=== PATIENT | male | born 1935 | race Caucasian/White ===

== ENCOUNTER 2024-06-15 02:01 | Inpatient (IN) | payer MEDICARE ==
[~2024-06-15] VITALS: Ht 167.6 cm; Wt 49.9 kg
[2024-06-15 02:58] LABS: BASOPHILS # (AUTO) 0.1 K/uL (0.0-0.2); BASOPHILS % (AUTO) 0.9 % (0.0-2.0); EOSINOPHILS # (AUTO) 0.3 K/uL (0.0-0.7); HEMATOCRIT 36 % (39-51); LYMPHOCYTES # (AUTO) 2.5 K/uL (0.8-4.8); LYMPHOCYTES % (AUTO) 36.6 % (20.0-44.0); MEAN CORPUSCULAR HEMOGLOBIN 27 PG (26.0-33.0); MEAN CORPUSCULAR HGB CONC 31 g/dl (31.0-36.0); MEAN CORPUSCULAR VOLUME 87 fL (80-96); MONOCYTES # (AUTO) 0.9 K/uL (0.1-1.30); MONOCYTES % (AUTO) 12.8 % (2.0-12.0); NEUTROPHILS % (AUTO) 44.7 % (43.0-81.0); PLATELET COUNT (AUTO) 149 K/uL (150-450); RED CELL DISTRIBUTION WIDTH 19.5 % (11.5-15.0); WHITE BLOOD COUNT (AUTO) 6.8 K/uL (4.3-11.0)
[2024-06-15 03:05] LABS: CALCIUM, SERUM 9.3 mg/dL (8.5-10.1); CARBON DIOXIDE 28 mmol/L (21-32); CHLORIDE 103 mmol/L (98-107); CREATININE 5.7 mg/dL (0.6-1.3); GLUCOSE 77 mg/dL (74-106); SODIUM SERUM 140 mmol/L (136-145); UREA NITROGEN, BLOOD 66 mg/dL (7-18)
[2024-06-15 03:11] LABS: ALANINE AMINOTRANSFERASE 12 U/L (12-78); ALBUMIN 3.3 g/dL (3.4-5.0); ALKALINE PHOSPHATASE 55 U/L (46-116); ASPARTATE AMINOTRANSFERASE 11 U/L (15-37); BILIRUBIN,TOTAL 0.3 mg/dL (0.2-1.0); TOTAL PROTEIN, SERUM 8.2 g/dL (6.4-8.2)
[2024-06-15] MEDS: IV NS 0.9% 1,000 ML IV ONE (03:23)
[2024-06-15] MEDS ORDERED: Z GUARD REMEDY 4 OZ OINT TP PRN (04:00)
[2024-06-15] MEDS ORDERED: ONDANSETRON HCL/PF 4 MG/2 ML VIAL IVP PRN (04:00)
[2024-06-15] MEDS ORDERED: MAG HYDROX/AL HYDROX/SIMETH 30 ML UDC PO PRN (04:00)
[2024-06-15 05:07] VITALS: BP 172/80; TEMP 97.7; O2SAT 97
[2024-06-15] MEDS: hydrALAZINE HCL IV 20 MG VIAL IV PRN (06:13)
[2024-06-15 08:00] VITALS: BP_SYST 150; BP_SYST 158; BP_DIAS 74; BP_DIAS 77; TEMP 97.5; TEMP 97.6; O2SAT 99
[2024-06-15] MEDS ORDERED: DEXTROSE 50%-WATER 50 ML DISP.SYRIN IV PRN (08:00)
[2024-06-15] MEDS: BLOOD SUGAR DIAGNOSTIC 1 EACH STRIP IN SCH (09:06)
[2024-06-15] MEDS: PANTOPRAZOLE 40 MG VIAL IV SCH (09:06)
[2024-06-15] MEDS: INSULIN REGULAR, HUMAN 100 UNIT/ML 3 ML VIAL SQ PRN (12:29)
[2024-06-15] MEDS: ACETAMINOPHEN 325 MG TABLET PO PRN (14:15)
[2024-06-15 20:00] VITALS: BP 150/77; TEMP 97.5; O2SAT 99
[2024-06-16 07:00] VITALS: BP 178/78; TEMP 97.5; O2SAT 98
[2024-06-16 07:17] LABS: BASOPHILS # (AUTO) 0.1 K/uL (0.0-0.2); BASOPHILS % (AUTO) 1.1 % (0.0-2.0); EOSINOPHILS # (AUTO) 0.3 K/uL (0.0-0.7); EOSINOPHILS % (AUTO) 4.1 % (0.0-6.0); HEMATOCRIT 35 % (39-51); HEMOGLOBIN 10.7 g/dL (13.5-17.5); LYMPHOCYTES # (AUTO) 2.5 K/uL (0.8-4.8); LYMPHOCYTES % (AUTO) 36.2 % (20.0-44.0); MEAN CORPUSCULAR HEMOGLOBIN 27 PG (26.0-33.0); MEAN CORPUSCULAR HGB CONC 30 g/dl (31.0-36.0); MEAN CORPUSCULAR VOLUME 89 fL (80-96); MONOCYTES # (AUTO) 0.7 K/uL (0.1-1.30); MONOCYTES % (AUTO) 9.9 % (2.0-12.0); NEUTROPHILS # (AUTO) 3.3 K/uL (1.8-8.9); NEUTROPHILS % (AUTO) 48.7 % (43.0-81.0); PLATELET COUNT (AUTO) 143 K/uL (150-450); RED BLOOD CELL COUNT(AUTO) 3.94 MIL/uL (4.5-6.0); RED CELL DISTRIBUTION WIDTH 19.9 % (11.5-15.0); WHITE BLOOD COUNT (AUTO) 6.8 K/uL (4.3-11.0)
[2024-06-16 07:40] LABS: CALCIUM, SERUM 8.7 mg/dL (8.5-10.1); CARBON DIOXIDE 27 mmol/L (21-32); CHLORIDE 100 mmol/L (98-107); CREATININE 3.7 mg/dL (0.6-1.3); GLUCOSE 70 mg/dL (74-106); MAGNESIUM 2.5 mg/dL (1.8-2.4); PHOSPHORUS 2.5 mg/dL (2.5-4.9); SODIUM SERUM 134 mmol/L (136-145); UREA NITROGEN, BLOOD 34 mg/dL (7-18)
[2024-06-16] MEDS: PANTOPRAZOLE 40 MG TABLET.DR PO SCH (08:34)
[2024-06-16] MEDS: AMLODIPINE BESYLATE 5 MG TABLET PO SCH (08:34)
[2024-06-16 09:00] VITALS: BP 152/71
[2024-06-16 09:12] LABS: HEPATITIS B CORE AB, IgM Negative (Negative); HEPATITIS B CORE AB, TOTAL Positive (Negative); HEPATITIS B SURFACE AB Reactive (.)
[2024-06-16] MEDS ORDERED: SENN-261 PO (12:12)
[2024-06-16] MEDS ORDERED: ONDA-97 PO (12:12)
[2024-06-16] MEDS ORDERED: FAMO20TA8 PO (12:12)
[2024-06-16] MEDS ORDERED: NUT.237L67 PO (12:12)
[2024-06-16] MEDS ORDERED: DICL100G34 TP (12:12)
[2024-06-16] MEDS ORDERED: MIRT7.5T10 PO (12:12)
[2024-06-16] MEDS ORDERED: FERR325T23 PO (12:12)
[2024-06-16] MEDS ORDERED: CHOL100043 PO (12:12)
[2024-06-16] MEDS ORDERED: BISM262O28 PO (12:12)
[2024-06-16] MEDS ORDERED: ACET325T53 PO (12:12)
[2024-06-16] MEDS ORDERED: MIDO5TAB4 PO (12:12)
[2024-06-16] MEDS ORDERED: ATOR10TA PO (12:12)
[2024-06-16] MEDS ORDERED: FINA5TAB3 PO (12:12)
[2024-06-16] MEDS ORDERED: SEVE800T7 PO (12:12)
[2024-06-16] MEDS ORDERED: LIDO1ADH82 TP (12:12)
[2024-06-16] MEDS ORDERED: GUAI100L26 PO (12:12)
[2024-06-16] MEDS ORDERED: TAMS-12 PO (12:12)
[2024-06-16] MEDS ORDERED: MULT-213 PO (12:12)
[2024-06-16] MEDS ORDERED: CARV6.252 PO (12:12)
[2024-06-16] MEDS ORDERED: HYDR-4076 PO (12:12)
[2024-06-16 16:00] VITALS: BP 149/70; TEMP 97.9; O2SAT 95
[2024-06-16] MEDS ORDERED: NEPRO VAN 237 ML CAN PO PRN (19:00)
[2024-06-16 20:00] VITALS: BP 134/83; TEMP 98.1; O2SAT 95
[2024-06-16] MEDS: MAGNESIUM HYDROXIDE 30 ML UDC PO PRN (20:15)
[2024-06-17 06:29] LABS: BASOPHILS # (AUTO) 0.1 K/uL (0.0-0.2); BASOPHILS % (AUTO) 0.7 % (0.0-2.0); EOSINOPHILS # (AUTO) 0.4 K/uL (0.0-0.7); EOSINOPHILS % (AUTO) 5.3 % (0.0-6.0); HEMATOCRIT 34 % (39-51); HEMOGLOBIN 10.6 g/dL (13.5-17.5); LYMPHOCYTES % (AUTO) 34.9 % (20.0-44.0); MEAN CORPUSCULAR HEMOGLOBIN 27 PG (26.0-33.0); MEAN CORPUSCULAR HGB CONC 31 g/dl (31.0-36.0); MEAN CORPUSCULAR VOLUME 86 fL (80-96); MONOCYTES % (AUTO) 11.2 % (2.0-12.0); NEUTROPHILS # (AUTO) 4.1 K/uL (1.8-8.9); NEUTROPHILS % (AUTO) 47.9 % (43.0-81.0); PLATELET COUNT (AUTO) 147 K/uL (150-450); RED BLOOD CELL COUNT(AUTO) 3.96 MIL/uL (4.5-6.0); WHITE BLOOD COUNT (AUTO) 8.5 K/uL (4.3-11.0)
[2024-06-17 06:57] LABS: CALCIUM, SERUM 9.1 mg/dL (8.5-10.1); CARBON DIOXIDE 27 mmol/L (21-32); CHLORIDE 101 mmol/L (98-107); CREATININE 5.1 mg/dL (0.6-1.3); GLUCOSE 97 mg/dL (74-106); MAGNESIUM 2.4 mg/dL (1.8-2.4); PHOSPHORUS 3.9 mg/dL (2.5-4.9); POTASSIUM 4.9 mmol/L (3.5-5.1); SODIUM SERUM 138 mmol/L (136-145); UREA NITROGEN, BLOOD 59 mg/dL (7-18)
[2024-06-17 07:00] VITALS: BP 171/81; TEMP 97.9; O2SAT 99
[2024-06-17 09:30] VITALS: BP 123/70
[2024-06-17 12:00] VITALS: BP 127/76; TEMP 98.7; O2SAT 97
[2024-06-17 16:00] VITALS: TEMP 98.6; O2SAT 97
[2024-06-17 20:00] VITALS: BP 142/76; TEMP 97.7; O2SAT 98
[2024-06-17 20:37] VITALS: BP 142/76; TEMP 97.7; O2SAT 98
[2024-06-18 07:30] VITALS: BP 141/74; TEMP 97.9; O2SAT 96
[2024-06-18 16:00] VITALS: BP 133/74; TEMP 97.5; O2SAT 97
[2024-06-18] MEDS ORDERED: SENNOSIDES 8.6 MG TABLET PO PRN (18:00)
[2024-06-18] MEDS: SEVELAMER CARBONATE 800 MG TABLET PO SCH (18:35)
[2024-06-18 20:00] VITALS: BP 124/65; TEMP 98.8; O2SAT 97
[2024-06-18 20:44] VITALS: BP 124/65; TEMP 98.8; O2SAT 97
[2024-06-18] MEDS: TAMSULOSIN 0.4 MG CAP.SR.24H PO SCH (21:32)
[2024-06-18] MEDS: ATORVASTATIN 10 MG TABLET PO SCH (21:32)
[2024-06-18] MEDS: hydrALAZINE HCL 25 MG TABLET PO SCH (21:33)
[2024-06-19 06:46] LABS: BASOPHILS % (AUTO) 0.5 % (0.0-2.0); EOSINOPHILS # (AUTO) 0.4 K/uL (0.0-0.7); EOSINOPHILS % (AUTO) 4.5 % (0.0-6.0); HEMATOCRIT 31 % (39-51); HEMOGLOBIN 9.7 g/dL (13.5-17.5); LYMPHOCYTES # (AUTO) 2.9 K/uL (0.8-4.8); LYMPHOCYTES % (AUTO) 34.8 % (20.0-44.0); MEAN CORPUSCULAR HEMOGLOBIN 27 PG (26.0-33.0); MEAN CORPUSCULAR HGB CONC 32 g/dl (31.0-36.0); MEAN CORPUSCULAR VOLUME 85 fL (80-96); MONOCYTES # (AUTO) 0.8 K/uL (0.1-1.30); MONOCYTES % (AUTO) 9.2 % (2.0-12.0); NEUTROPHILS # (AUTO) 4.2 K/uL (1.8-8.9); PLATELET COUNT (AUTO) 134 K/uL (150-450); RED BLOOD CELL COUNT(AUTO) 3.59 MIL/uL (4.5-6.0); RED CELL DISTRIBUTION WIDTH 19.5 % (11.5-15.0); WHITE BLOOD COUNT (AUTO) 8.3 K/uL (4.3-11.0)
[2024-06-19 06:52] LABS: INR 1.06 (0.91-1.10); PROTHROMBIN TIME 11.2 SECS (9.2-11.1)
[2024-06-19 07:05] LABS: ALANINE AMINOTRANSFERASE 9 U/L (12-78); ALBUMIN 2.9 g/dL (3.4-5.0); ALKALINE PHOSPHATASE 54 U/L (46-116); ASPARTATE AMINOTRANSFERASE 14 U/L (15-37); BILIRUBIN,TOTAL 0.4 mg/dL (0.2-1.0); CALCIUM, SERUM 8.7 mg/dL (8.5-10.1); CARBON DIOXIDE 32 mmol/L (21-32); CHLORIDE 96 mmol/L (98-107); CREATININE 5.8 mg/dL (0.6-1.3); GLUCOSE 80 mg/dL (74-106); MAGNESIUM 2.8 mg/dL (1.8-2.4); PHOSPHORUS 4.7 mg/dL (2.5-4.9); SODIUM SERUM 135 mmol/L (136-145); TOTAL PROTEIN, SERUM 7.3 g/dL (6.4-8.2); UREA NITROGEN, BLOOD 60 mg/dL (7-18)
[2024-06-19 07:30] VITALS: BP 123/65; TEMP 97.9; O2SAT 98
[2024-06-19] MEDS: NEPRO VAN 237 ML CAN PO SCH (08:14)
[2024-06-19] MEDS: CARVEDILOL 6.25 MG TABLET PO SCH (08:14)
[2024-06-19] MEDS: FERROUS SULFATE (325 MG) 325 MG/TAB TABLET PO SCH (08:14)
[2024-06-19] MEDS: FAMOTIDINE (20 MG) 20 MG TABLET PO SCH (08:15)
[2024-06-19] MEDS: FINASTERIDE (5 MG) 5 MG TABLET PO SCH (08:15)
[2024-06-19] MEDS ORDERED: LIDOCAINE HCL/MPF 1% 30 ML VIAL IJ ONE (14:43)
[2024-06-19] MEDS ORDERED: CELLULOSE,OXIDIZED 1 EA PACK MC ONE (14:43)
[2024-06-19] MEDS ORDERED: HEMOSTATIC MATRIX 8 ML 1 EACH PAD MC ONE (14:43)
[2024-06-19] MEDS ORDERED: CELLULOSE,OXIDIZED 1 EACH EACH MC ONE (14:44)
[2024-06-19] MEDS ORDERED: CELLULOSE,OXIDIZED 1 PKT EACH MC ONE (14:44)
[2024-06-19 16:00] VITALS: BP 126/63; TEMP 97.5; O2SAT 98
[2024-06-19] MEDS ORDERED: ROPIVACAINE HCL 0.5% 5 MG/ML 30ML VIAL ONE (16:51)
[2024-06-19 20:00] VITALS: BP_SYST 114; BP_SYST 119; BP_SYST 130; BP_DIAS 52; BP_DIAS 57; BP_DIAS 62; TEMP 97.8; TEMP 98.1; TEMP 98.3; O2SAT 97; O2SAT 98
[2024-06-20 08:00] VITALS: BP 112/67; TEMP 98.4; O2SAT 97
[2024-06-20 16:00] VITALS: BP 134/69; TEMP 98.1; O2SAT 100
[2024-06-20 20:00] VITALS: BP 140/57; TEMP 98.4; O2SAT 99
[2024-06-20 21:30] VITALS: BP 137/68; TEMP 98.4; O2SAT 98
== END 2024-06-20 21:45 | DRG 628 ==
LOC: ER 02:09 → MED 03:40
PROVIDERS: ADMIT Internal Medicine; ATTEND Internal Medicine
PROC: 5A1D70Z Performance of Urinary Filtration, Intermittent, Less than 6 Hours Per Day (ICD-10-PCS; 2024-06-15)
PROC: 03180ZD Bypass Left Brachial Artery to Upper Arm Vein, Open Approach (ICD-10-PCS; principal; 2024-06-19)
DX: R62.7 Adult failure to thrive (principal); N18.6 End stage renal disease; R64 Cachexia; I12.0 Hypertensive chronic kidney disease with stage 5 chronic kidney disease or end stage renal disease; Z68.1 Body mass index [BMI] 19.9 or less, adult; E11.22 Type 2 diabetes mellitus with diabetic chronic kidney disease; Z99.2 Dependence on renal dialysis; D63.1 Anemia in chronic kidney disease; M89.8X9 Other specified disorders of bone, unspecified site; Z88.2 Allergy status to sulfonamides; Z88.3 Allergy status to other anti-infective agents; D64.9 Anemia, unspecified; N25.0 Renal osteodystrophy
CPT/HCPCS: 36415; 71045-TC; 80048-TC; 80053-TC; 82962-TC; 83735-TC; 84100-TC; 85025-TC; 85610-TC; 85730-TC; 86704; 86705; 86706; 86803; 86850-TC; 87081-TC; 87340; 90935-TC; 97110-TC; 97116-TC; 97530-TC; A6209; G0378; J0360; J0690; J1644; J1815; J2470; J2704; J2795; J3490; J7030; J7060

== ENCOUNTER 2024-06-30 22:50 | Emergency (ER) | payer MEDICARE, OTHER ==
[~2024-06-30] VITALS: Ht 167.6 cm; Wt 49.9 kg
[~2024-06-30 22:50] MED LIST: ACET325T53 PO; ATOR10TA PO; BISM262O28 PO; CARV6.252 PO; CHOL100043 PO; DICL100G34 TP; FAMO20TA8 PO; FERR325T23 PO; FINA5TAB3 PO; GUAI100L26 PO; HYDR-4076 PO; LIDO1ADH82 TP; MIDO5TAB4 PO; MIRT7.5T10 PO; MULT-213 PO; NUT.237L67 PO; ONDA-97 PO; SENN-261 PO; SEVE800T7 PO; TAMS-12 PO
[2024-06-30 23:48] LABS: BASOPHILS % (AUTO) 0.5 % (0.0-2.0); EOSINOPHILS # (AUTO) 0.3 K/uL (0.0-0.7); EOSINOPHILS % (AUTO) 3.9 % (0.0-6.0); HEMATOCRIT 31 % (39-51); HEMOGLOBIN 9.9 g/dL (13.5-17.5); LYMPHOCYTES # (AUTO) 2.8 K/uL (0.8-4.8); LYMPHOCYTES % (AUTO) 32.5 % (20.0-44.0); MEAN CORPUSCULAR HEMOGLOBIN 28 PG (26.0-33.0); MEAN CORPUSCULAR HGB CONC 32 g/dl (31.0-36.0); MEAN CORPUSCULAR VOLUME 87 fL (80-96); MONOCYTES # (AUTO) 0.7 K/uL (0.1-1.30); MONOCYTES % (AUTO) 8.4 % (2.0-12.0); NEUTROPHILS # (AUTO) 4.8 K/uL (1.8-8.9); NEUTROPHILS % (AUTO) 54.7 % (43.0-81.0); PLATELET COUNT (AUTO) 165 K/uL (150-450); RED BLOOD CELL COUNT(AUTO) 3.58 MIL/uL (4.5-6.0); RED CELL DISTRIBUTION WIDTH 18.7 % (11.5-15.0); WHITE BLOOD COUNT (AUTO) 8.7 K/uL (4.3-11.0)
[2024-07-01 00:07] LABS: ALANINE AMINOTRANSFERASE 11 U/L (12-78); ALBUMIN 3.2 g/dL (3.4-5.0); ALKALINE PHOSPHATASE 62 U/L (46-116); ASPARTATE AMINOTRANSFERASE 22 U/L (15-37); BILIRUBIN,DIRECT 0.1 mg/dL (0.0-0.2); BILIRUBIN,TOTAL 0.3 mg/dL (0.2-1.0); CALCIUM, SERUM 8.4 mg/dL (8.5-10.1); CARBON DIOXIDE 34 mmol/L (21-32); CHLORIDE 100 mmol/L (98-107); CREATININE 4.3 mg/dL (0.6-1.3); GLUCOSE 101 mg/dL (74-106); LIPASE 116 U/L (16-77); POTASSIUM 3.9 mmol/L (3.5-5.1); SODIUM SERUM 137 mmol/L (136-145); TOTAL PROTEIN, SERUM 8.1 g/dL (6.4-8.2); UREA NITROGEN, BLOOD 52 mg/dL (7-18)
[2024-07-01] MEDS ORDERED: MAGNESIUM HYDROXIDE 30 ML UDC ONE (00:20)
[2024-07-01] MEDS ORDERED: LACTULOSE 10 G/15 ML UDC (PYXIS) ONE (00:20)
[2024-07-01] MEDS: LACTULOSE 10 G/15 ML UDC (PYXIS) PO ONE (00:33)
[2024-07-01] MEDS: MAGNESIUM HYDROXIDE 30 ML UDC PO ONE (00:33)
[2024-07-01] MEDS ORDERED: SENNOSIDES 8.6 MG TABLET ONE (00:53)
[2024-07-01] MEDS: SENNOSIDES/DOCUSATE SODIUM 1 TAB TABLET PO SCH (00:57)
[2024-07-01 02:48] LABS: APPEARANCE,URINE CLEAR (CLEAR); BILIRUBIN,URINE NEGATIVE (NEGATIVE); BLOOD, URINE 1+ Ery/uL (NEGATIVE); COLOR,URINE YELLOW (YELLOW); KETONES,URINE NEGATIVE (NEGATIVE); LEUKOCYTE ESTERASE ,URINE 2+ (NEGATIVE); NITRITE, URINE NEGATIVE (NEGATIVE); PROTEIN,URINE 3+ mg/dl (NEGATIVE); UGLUCOSE NEGATIVE (NEGATIVE); UROBILINOGEN,URINE 0.2 EU/dL (0.2)
[2024-07-01 03:17] LABS: ADD URINE CULTURE YES; BACTERIA,URINE Few /HPF (None Seen); MUCUS,URINE Many /LPF (None Seen); SQUAMOUS EPITHELIAL CELL,UR None Seen /HPF (None Seen); WBC,URINE 21-50 /HPF (0-3)
[2024-07-01] MEDS ORDERED: NA PHOS,M-B/NA PHOS,DI-BA 1 EA ENEMA RC ONE (04:26)
[2024-07-01] MEDS: NA PHOS,M-B/NA PHOS,DI-BA 1 EA ENEMA RC ONE (04:49)
[2024-07-01] MEDS ORDERED: DOCU-141 PO (05:51)
[2024-07-01] MEDS ORDERED: SENN8.6T19 PO (05:51)
[2024-07-01] MEDS ORDERED: CEPH500C2 PO (05:51)
[2024-07-01 07:48] VITALS: BP 179/77; TEMP 98; O2SAT 99
== END 2024-07-01 08:19 | disposition home health service (06) ==
LOC: ER 22:54
DX: K56.41 Fecal impaction (principal); I12.0 Hypertensive chronic kidney disease with stage 5 chronic kidney disease or end stage renal disease; E11.22 Type 2 diabetes mellitus with diabetic chronic kidney disease; I31.39 Other pericardial effusion (noninflammatory); Z88.2 Allergy status to sulfonamides; Z88.1 Allergy status to other antibiotic agents; Z99.2 Dependence on renal dialysis
CPT/HCPCS: 36415; 80048-TC; 80076-TC; 81001; 83690-TC; 85025-TC; 87086-TC

== ENCOUNTER 2024-10-06 16:53 | Emergency (ER) | payer MEDICARE, OTHER ==
[~2024-10-06] VITALS: Ht 167.6 cm; Wt 72.6 kg
[~2024-10-06 16:53] MED LIST changes: +CEPH500C2 PO; +DOCU-141 PO
[2024-10-06 20:08] VITALS: TEMP 97.5
[2024-10-06 20:46] LABS: BASOPHILS # (AUTO) 0.1 K/uL (0.0-0.2); BASOPHILS % (AUTO) 0.8 % (0.0-2.0); EOSINOPHILS # (AUTO) 0.3 K/uL (0.0-0.7); EOSINOPHILS % (AUTO) 3.2 % (0.0-6.0); HEMATOCRIT 36 % (39-51); HEMOGLOBIN 11.8 g/dL (13.5-17.5); LYMPHOCYTES # (AUTO) 2.4 K/uL (0.8-4.8); LYMPHOCYTES % (AUTO) 27.2 % (20.0-44.0); MEAN CORPUSCULAR HEMOGLOBIN 32 PG (26.0-33.0); MEAN CORPUSCULAR HGB CONC 33 g/dl (31.0-36.0); MEAN CORPUSCULAR VOLUME 97 fL (80-96); MONOCYTES # (AUTO) 0.9 K/uL (0.1-1.30); MONOCYTES % (AUTO) 10.5 % (2.0-12.0); NEUTROPHILS # (AUTO) 5.1 K/uL (1.8-8.9); NEUTROPHILS % (AUTO) 58.3 % (43.0-81.0); PLATELET COUNT (AUTO) 271 K/uL (150-450); RED BLOOD CELL COUNT(AUTO) 3.72 MIL/uL (4.5-6.0); RED CELL DISTRIBUTION WIDTH 14.5 % (11.5-15.0); WHITE BLOOD COUNT (AUTO) 8.8 K/uL (4.3-11.0)
[2024-10-06 20:57] LABS: CALCIUM, SERUM 8.8 mg/dL (8.5-10.1); CREATININE 4.8 mg/dL (0.6-1.3); POTASSIUM 4.2 mmol/L (3.5-5.1)
[2024-10-06 21:52] LABS: INR 1.07 (0.91-1.10); PARTIAL THROMBOPLASTIN TIME 30.6 SEC (24.3-34.3); PROTHROMBIN TIME 11.3 SECS (9.2-11.1)
[2024-10-06 21:56] LABS: MAGNESIUM 2.1 mg/dL (1.8-2.4); PHOSPHORUS 4.4 mg/dL (2.5-4.9)
[2024-10-06] MEDS ORDERED: LEVETIRACETAM (500MG) 500 MG/5 ML VIAL IV ONE (22:32)
[2024-10-06] MEDS: LEVETIRACETAM (500MG) 1,000 MG in IV NS 0.9% 90 ML IV SCH (22:34)
[2024-10-06 22:46] VITALS: BP 138/75; O2SAT 97
== END 2024-10-06 23:16 | disposition short-term general hospital (02) ==
LOC: ER 16:56
DX: I62.9 Nontraumatic intracranial hemorrhage, unspecified (principal); I12.0 Hypertensive chronic kidney disease with stage 5 chronic kidney disease or end stage renal disease; N18.6 End stage renal disease; I44.4 Left anterior fascicular block; I48.92 Unspecified atrial flutter; F32.A Depression, unspecified; E11.22 Type 2 diabetes mellitus with diabetic chronic kidney disease; Z79.899 Other long term (current) drug therapy; Z86.73 Personal history of transient ischemic attack (TIA), and cerebral infarction without residual deficits; Z88.1 Allergy status to other antibiotic agents; Z88.2 Allergy status to sulfonamides; Z99.2 Dependence on renal dialysis
CPT/HCPCS: 36415; 70450-TC; 71045-TC; 80048-TC; 83735-TC; 84100-TC; 85025-TC; 85610-TC; 85730-TC; A4223; J1953; J7030